=== PATIENT | male | born 1965 | race Two or more races ===

== ENCOUNTER 2021-02-21 11:26 | Emergency (ER) | payer MEDICAID, OTHER ==
[2021-02-21] MEDS ORDERED: SODIUM CHLORIDE 0.9% 1,000 ML IV ONE ×2 (11:45)
[2021-02-21] MEDS ORDERED: InsuLIN REG 1unit/0.01ml Soln (100units/ml) IV ONE (11:45)
[2021-02-21 12:00] LABS: Basophils # (auto) 0.1 10 ^3/uL (0-0.2); Basophils % (auto) 0.8 % (0.0-2.0); Eosinophils # (auto) 0.2 10 ^3/uL (0-0.8); Hematocrit 44.5 % (41.0-53.0); Hemoglobin 15.8 g/dL (13.5-17.5); Lymphocytes # (auto) 1.7 10 ^3/uL (0.4-5.4); Lymphocytes % (auto) 21.3 % (10.0-50.0); Mean Corpuscular Hemoglobin 31.9 pg (28.0-32.0); Mean Corpuscular Hgb Conc. 35.5 g/dL (32.0-36.0); Mean Corpuscular Volume 89.8 fL (80.0-100.0); Monocytes # (auto) 0.7 10 ^3/uL (0-1.3); Monocytes % (auto) 8.4 % (0.0-12.0); Neutrophils # (auto) 5.2 10 ^3/uL (1.6-8.6); Neutrophils % (auto) 66.5 % (37.0-80.0); Nucleated Red Blood Cells % 0.2 %; Platelet Count (auto) 216 10^3/uL (140-450); Red Blood Cells 4.96 10^6/uL (4.5-5.90); Red Cell Distribution Width 13.4 % (11.8-14.3); White Blood Cell 7.9 10^3/uL (4.4-10.8)
[2021-02-21 12:18] LABS: Albumin 3.1 g/dL (3.4-5.0); Anion Gap 7 (5-15); Blood Urea Nitrogen 16 mg/dL (7-18); Calcium 8.5 mg/dL (8.5-10.1); Carbon Dioxide 27 mmol/L (21-32); Chloride 103 mmol/L (98-107); Glucose 286 mg/dL (74-106); Potassium 4.1 mmol/L (3.5-5.1); Sodium 137 mmol/L (136-145)
[2021-02-21 12:24] LABS: Alanine Aminotransferase 37 U/L (16-61); Alkaline Phosphatase 133 U/L (45-117); Aspartate Aminotransferase 14 U/L (15-37); Bilirubin, Total 0.6 mg/dL (0.2-1.0); GFR African American 168 mL/min; GFR Non-African American 139 mL/min; Total Protein 6.9 g/dL (6.4-8.2)
[2021-02-21 14:24] LABS: Urine Bacteria NONE SEEN /hpf (None Seen); Urine Blood Negative /uL (Negative); Urine WBC <1 /hpf (0 - 3)
[2021-02-21 15:15] VITALS: BP 136/93
== END 2021-02-21 15:17 | disposition home or self-care (01) ==
LOC: ER 11:26 → EDBD 11:26 → ER 15:16
DX: E11.65 Type 2 diabetes mellitus with hyperglycemia (principal); R11.0 Nausea
CPT/HCPCS: 36415; 70450; 71045; 80053; 81001; 82962; 83036; 84484; 85025; 93005; 96361; 96374; 99285; J1815; J7030